=== PATIENT | female | born 1960 | race Caucasian/White ===

== ENCOUNTER 2020-09-07 15:36 | Emergency (ER) | payer BC ==
[~2020-09-07 15:36] MED LIST: FLOMAX0.4 MG PO; KEFLEX CAP 500500 MG PO; NORCO 5-325 TA1 EACH PO; TORADOL 10 MG T10 MG PO; ZOFRAN ODT 4 MG4 MG SL
[2020-09-07 18:44] LABS: HEMOGLOBIN 13.5 gm/dl (12.3-15.3); RED BLOOD COUNT 4.47 M/UL (4.00-5.10); WHITE BLOOD COUNT 8.7 K/UL (4.5-11.0)
[2020-09-07 19:01] LABS: BUN/CREATININE RATIO 26 (0-10)
== END 2020-09-07 19:50 | disposition home or self-care (01) ==
LOC: ER1 15:36
PROVIDERS: Emergency Medicine
DX: S62.501B Fracture of unspecified phalanx of right thumb, initial encounter for open fracture (principal); S01.01XA Laceration without foreign body of scalp, initial encounter; W07.XXXA Fall from chair, initial encounter; Z88.2 Allergy status to sulfonamides; Z90.710 Acquired absence of both cervix and uterus
CPT/HCPCS: 12001; 70450; 71045; 72125; 73130; 80053; 82550; 82553; 83874; 84484; 85025; 96374; 96375; 96376; 99285; J0690; J2270; J2405

== ENCOUNTER → 2021-02-09 | Outpatient (CLI) | payer BC | LOC: EXRD 09:44 | DX: M79.642 Pain in left hand (principal); M79.641 Pain in right hand | CPT/HCPCS: 73130 ==